=== PATIENT | male | born 1995 | race African-American/Black ===

== ENCOUNTER 2019-04-26 14:48 | Inpatient (IN) | payer OTHER ==
[~2019-04-26] VITALS: Ht 177.8 cm; Wt 84.1 kg
[2019-04-26 15:44] LABS: HEMATOCRIT 42.6 % (42.0-52.0); HEMOGLOBIN 14.6 g/dl (13.5-17.5); MEAN CORPUSCULAR HEMOGLOBIN 30.1 pg (27.0-33.0); MEAN CORPUSCULAR HGB CONC 34.3 g/dl (32.0-36.5); MEAN CORPUSCULAR VOLUME 87.8 fl (80.0-96.0); PLATELET COUNT, AUTOMATED 348 10^3/uL (150-450); RED BLOOD COUNT 4.85 10^6/uL (4.30-6.10)
[2019-04-26 16:19] LABS: ACETAMINOPHEN LEVEL < 2.0 UG/ML (10.0-30.0); ALBUMIN 4.4 GM/DL (3.2-5.2); ALT/SGPT 31 U/L (12-78); BILIRUBIN,DIRECT 0.2 MG/DL (0.0-0.2); BLOOD UREA NITROGEN 11 MG/DL (7-18); CALCIUM LEVEL 9.5 MG/DL (8.5-10.1); CARBON DIOXIDE LEVEL 30 MEQ/L (21-32); CHLORIDE LEVEL 104 MEQ/L (98-107); CREATININE FOR GFR 1.07 MG/DL (0.70-1.30); ETHYL ALCOHOL (ETHANOL) < 0.003 % (0.000-0.010); GLOMERULAR FILTRATION RATE > 60.0 (>60); GLUCOSE, FASTING 77 MG/DL (70-100); POTASSIUM SERUM 4.1 MEQ/L (3.5-5.1); SALICYLATE LEVEL < 1.7 MG/DL (5.0-30.0); SODIUM LEVEL 141 MEQ/L (136-145); THYROID STIMULATING HORMONE 0.638 uIU/ML (0.358-3.740); TOTAL PROTEIN 8.1 GM/DL (6.4-8.2)
[2019-04-26 17:28] LABS: AMPHETAMINES LEVEL URINE NEGATIVE (NEGATIVE); BARBITURATES URINE NEGATIVE (NEGATIVE); BENZODIAZEPINES URINE NEGATIVE (NEGATIVE); CANNABINOIDS URINE POSITIVE (NEGATIVE); COCAINE METABOLITE URINE NEGATIVE (NEGATIVE); METHADONE URINE NEGATIVE (NEGATIVE); OPIATES URINE NEGATIVE (NEGATIVE); PHENCYCLIDINE URINE NEGATIVE (NEGATIVE)
--- NOTE | 2019-04-27 07:49 | ECGEPIP ---
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
[2019-04-27] MEDS ORDERED: [UNRECOGNIZED DRUG - REMARK] (11:19)
--- NOTE | 2019-04-27 13:05 | ED PDOC ---
Provider Note Attempted to safety plan for the patient, it appears that his housing issues provoke much of a suicidality. [facility] but no ability to find any emergency [facility], the patient appears to have a stayaway order that causes a problem for his housing as his girlfriend lives in the apartment that he rents. DSS is unable to help due to his current income despite him having no money. After observation for over 24 hours, he still remains suicidal thus will need to be admitted LISA TRUJILLO DO Apr 27, 2019 13:05
[2019-04-27] MEDS ORDERED: MOM 30ML SUSPENSION UDC PO PRN (17:15)
[2019-04-27] MEDS ORDERED: MAALOX 30 ML SUSP *UDC PO PRN (17:15)
[2019-04-27] MEDS ORDERED: traZODone 50 MG TAB PO PRN (17:15)
[2019-04-27] MEDS ORDERED: ACETAMINOPHEN TAB 650MG DOSE (2X325MG) PO PRN (17:15)
[2019-04-27] MEDS ORDERED: NICOTINE 21MG/24HR 1 EA TRANSDERMAL TD ONE (19:00)
[2019-04-27 20:30] VITALS: BP 160/82
[2019-04-27] MEDS ORDERED: IBUPROFEN 600 MG TAB PO PRN (22:15)
[2019-04-28 06:14] VITALS: BP 126/61
[2019-04-28] MEDS ORDERED: NICOTINE 21MG/24HR 1 EA TRANSDERMAL TD SCH (09:00)
--- NOTE | 2019-04-28 11:04 | MHHPEPDOC ---
General Date Of Admission: Apr 27, 2019 Legal Status: 9.39 Chief Complaint "I'm feeling suicidal." History of Present Illness HISTORY OF THE PRESENT ILLNESS: Patient is a 24 -year-old male , with no previous psych history who was brought to ED by [facility] staff after showing up there for help b/c he was feeling suicidal with plan to jump off a bridge due to being newly homeless, cold, and hungry. Pt in the ED stated that he was staying with his girlfriend night prior admission but that there was an incident with her causing him to be arrested and now there is a stay away order against him so is now homeless. Pt stated in Ed that he had been wandering around during the day trying to find a friend to stay with but friend no home. Stated he began to get hungry and cold which made him feel hopeless and helpless with thoughts of SI causing him to go to [facility], per ED. Pt admitted in ED that he would not be hopeless, helpless, or suicidal if he had a place to stay. Pt per ED, makes too much money to be accepted and aided by DSS. Psychiatric Review of Systems Depression (2 or more weeks): depressed mood, suicidal thoughts Peg (4 or more days of): denies Psychosis: denies PTSD: denies Anxiety: stressor related anxiety Past Psychiatric History Previous Psychiatric Diagnosis: denies Previous Psychiatric Admissions:denies. Suicide Attempts: denies Psychiatric Follow-up: denies Psychiatric medications: denies Past Medical History Medical Problems current nasal fracture, f/u is schedule outpatient thru ED Head Injury: No Seizures: No Hospitalizations: No Surgeries: Yes (s/p sx for fibula injury that he recieves disability for) Family Medical/Psychiatric HX Medical Problems noncontributory Psychiatric Disorders: No Addiction: No Suicide Attemps/Completions: No Addiction History nicotine, other (u tox pos cannabis) Social History Childhood: born and raised in [place] then moved to [place] with his family as a child, good childhood, family continues to be supportive of him but wants to remain [place] b/c he's an adult and needs to care for himself per ED Abuse/Trauma:denies Current Living Situation: was living with girlfriend but now there is a stay away order against him so was homeless until his girlfriend called him this am telling him she moved out of their home so that he can return to living there Education: high school grad Employment: [employer] , receives disability for fibula injury Social Support: girlfriend, family Legal: arrested to nights ago due to incident with his girlfriend and now stay away order in place against him with pending court date after d/c Marital: single, never , no kids Mental Status Examination General Appearance: well groomed, appears stated age, hospital scubs/clothing Build: average Demeanor: average Eye Contact: average Activity: average Behavior: cooperative Speech: clear, spontaneous, reg/rate,rhythm,volume Mood: euthymic Mood "good" Affect: full, appropriate, congruent Thought Process: logical/linear, intact Thought Content (Delusions): none reported, denies SI, HI, AVH Thought Content (Other): none reported, appropriate Thought Content (Aggressive): none reported Perception (Hallucinations): none reported Perception (Other): none reported Cognition (Impairment of): none reported Cognition(Intelligence Est.): average Oriented: Awake, Alert, Oriented times three Insight: good Judgment: Good Psychosis: Denies Diagnoses Adjustment d/o with depressed mood r/o malingering d/o cannabis use d/o A-FIB/CHADSVASC A-FIB History Current/History of A-Fib/PAF?: No Assessment Pt seen and states he's doing good and no longer feels depressed or suicidal due to having his home to return to live. His only complaints are some respiratory congestion and plans to take benadryl to relieve as needed when he gets home. Requested a flu shot before he leaves which can be done. Future oriented toward going to his follow-up appt regarding his fractured nose. He denies depression, anxiety, insomnia, SI/HI, hallucinations, delusions and feels safe to go home today. Initial Treatment Plan 1. Patient was admitted on a 9.39 status. 2. Complete history was obtained. 3. With patients permission, family will be contacted and database will be expanded. 4. Patients medication regimen will be reviewed and changed accordingly. 5. Patient will be provided with protected environment. 6. Patient will be treated with individual, group, and milieu therapies. 7. Patient will receive supportive psych-education. 8. Discharge planning will commence immediately. 9. Outpatient follow-up treatment will be strongly recommended. 10. The initial treatment plan will focus initially on: * Depression. * Risk for suicide. 11. D/c home with follow-up at [facility] ESTIMATED LENGTH OF STAY: 1-3 DAYS. TIME SPENT COUNSELING AND COORDINATING INITIAL CARE: 60 minutes. Vital Signs Vital Signs Date Time Temp Pulse Resp B/P (MAP) Pulse Ox O2 Delivery O2 Flow Rate FiO2 04/28/19 08:24 Room Air 04/28/19 06:14 98.5 65 14 126/61 (82) 04/27/19 20:30 98 Allergies Coded Allergies: No Known Allergies (Verified Allergy, Unknown, 04/26/19) JOSÉ CLOUD DO Apr 28, 2019 11:04
--- NOTE | 2019-04-28 11:10 | MHDSPDOC ---
[facility] Discharge Summary Discharge Summary DATE OF ADMISSION: Apr 27, 2019 at 17:08 DATE OF DISCHARGE: Apr 28, 2019 DISCHARGE DIAGNOSES: Adjustment d/o with depressed mood r/o malingering d/o cannabis use d/o REASON FOR ADMISSION: Patient is a 24 -year-old male , with no previous psych history who was brought to ED by [facility] staff after showing up there for help b/c he was feeling suicidal with plan to jump off a bridge due to being newly homeless, cold, and hungry. Pt in the ED stated that he was staying with his girlfriend night prior admission but that there was an incident with her causing him to be arrested and now there is a stay away order against him so is now homeless. Pt stated in Ed that he had been wandering around during the day trying to find a friend to stay with but friend no home. Stated he began to get hungry and cold which made him feel hopeless and helpless with thoughts of SI causing him to go to [facility], per ED. Pt admitted in ED that he would not be hopeless, helpless, or suicidal if he had a place to stay. Pt per ED, makes too much money to be accepted and aided by DSS. CONSULTANTS INVOLVED: none TREATMENT AND PROGRESS ON THE UNIT : Pt was admitted to [facility], seen for psyc hiatric assessment and monitored for safety. He was not started on any psychotropic medications as he did not feel he needed them and did not appear depressed. He was provided trazodone 50mg qhs prn insomnia. He attended groups daily during his stay. His symptoms improved with treatment. He was given a flu shot prior d/c which he tolerated well. On day of discharge he denied depression, anxiety, insomnia, SI/HI, hallucinations, delusions. He was [facility] He felt safe for discharge. DISCHARGE ASSESSMENT: Pt seen and states he's doing good and no longer feels depressed or suicidal due to having his home to return to live. His only complaints are some respiratory congestion and plans to take benadryl to relieve as needed when he gets home. Requested a flu shot before he leaves which can be done. Future oriented toward going to his follow-up appt regarding his fractured nose. He denies depression, anxiety, insomnia, SI/HI, hallucinations, delusions and feels safe to go home today. MENTAL STATUS EXAMINATION ON DISCHARGE: General Appearance: well groomed, appears stated age, hospital scubs/clothing Build: average Demeanor: average Eye Contact: average Activity: average Behavior: cooperative Speech: clear, spontaneous, reg/rate,rhythm,volume Mood: euthymic Mood "good" Affect: full, appropriate, congruent Thought Process: logical/linear, intact Thought Content (Delusions): none reported, denies SI, HI, AVH Thought Content (Other): none reported, appropriate Thought Content (Aggressive): none reported Perception (Hallucinations): none reported Perception (Other): none reported Cognition (Impairment of): none reported Cognition(Intelligence Est.): average Oriented: Awake, Alert, Oriented times three Insight: good Judgment: Good Psychosis: Denies MEDICATIONS ON DISCHARGE: none PLAN/FOLLOWUP ARRANGEMENTS: D/c home with [facility]-up at [facility] The amount of time spent in the coordination of care for this patient was approximately 30 minutes. Vital Signs/I&Os Vital Signs Date Time Temp Pulse Resp B/P (MAP) Pulse Ox O2 Delivery O2 Flow Rate FiO2 04/28/19 08:24 Room Air 04/28/19 06:14 98.5 65 14 126/61 (82) 04/27/19 20:30 98 Allergies Coded Allergies: No Known Allergies (Verified Allergy, Unknown, 04/26/19) JOSÉ CLOUD DO Apr 28, 2019 11:10
[2019-04-28 12:33] VITALS: BP 132/60
[2019-04-28] MEDS ORDERED: INFLUENZA QUADRIVALENT PF VACCINE 0.5ML SYRINGE (90686) IM ONE (14:00)
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
[2019-04-29] MEDS ORDERED: INFLUENZA QUADRIVALENT PF VACCINE 0.5ML SYRINGE (90686) IM ONE (09:00)
== END 2019-04-28 15:22 | disposition home or self-care (01) | DRG 881 ==
LOC: M ED 14:48 → M ED INP 04-27 17:08 → M PSY 04-27 18:36
PROVIDERS: ADMIT Psychiatry & Neurology Addiction Medicine; ATTEND Psychiatry & Neurology Psychiatry
DX: F43.21 Adjustment disorder with depressed mood (principal); F12.10 Cannabis abuse, uncomplicated; F17.210 Nicotine dependence, cigarettes, uncomplicated